=== PATIENT | male | born 1990 | race African-American/Black ===

== ENCOUNTER 2016-09-17 15:53 | Emergency (ER) | payer BC ==
[2016-09-17] MEDS ORDERED: ZOVIRAX800 M1 (16:00)
[2016-09-17 16:43] LABS: ANION GAP 18 mmol/L (0-20); BLOOD UREA NITROGEN 22 mg/dl (6-24); CALCIUM 9.5 mg/dl (8.5-10.5); CARBON DIOXIDE-VENOUS 25 mmol/L (22-32); CHLORIDE 103 mmol/l (96-110); CREATININE 1.42 mg/dl (0.60-1.30); GLUCOSE 82 mg/dL (70-110); SODIUM 141 mmol/L (135-145); eGFR VALUE FOR BLACK 80 mL/Min
[2016-09-17 16:47] LABS: POTASSIUM 4.7 mmol/L (3.7-5.1)
== END 2016-09-17 19:50 ==
LOC: EDMED 15:53
PROVIDERS: Nurse Practitioner Family
DX: E86.0 Dehydration (principal); F10.129 Alcohol abuse with intoxication, unspecified
CPT/HCPCS: J2405; J7030